=== PATIENT | female | born 1980 | race African-American/Black ===

== ENCOUNTER 2021-04-18 02:07 | Emergency (ER) | payer MEDICAID ==
[~2021-04-18] VITALS: Ht 172.7 cm; Wt 61.0 kg
[2021-04-18 02:29] VITALS: BP 109/88
== END 2021-04-18 03:21 | disposition left against medical advice (07) ==
LOC: ER 02:57
DX: Z04.6 Encounter for general psychiatric examination, requested by authority (principal)
CPT/HCPCS: 99281